=== PATIENT | female | born 1950 | race Caucasian/White ===

== ENCOUNTER → 2019-01-26 | Outpatient (CLI) | payer MEDICARE, OTHER ==
--- NOTE | 2019-01-26 09:02 | WOMENS IMAGING REPORT ---
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 Additio nal selected color Doppler and spectral images recorded. Note: Study does not meet criteria for complete doppler/duplex scan LIMITATIONS: None. FINDINGS: PANCREAS: The head and body of the pancreas are of normal echogenicity. The tail is obsc ured by overlying bowel gas. LIVER: Fatty liver. The liver measures 17.2 cm in length, at the uppe r limits of normal for size. LIVER VASCULATURE: Normal directional flow of the main portal vein and hepatic veins. GALLBLADDER: Interval cholecystectomy. ULTRASOUND-DETECTED NAVARRETE'S SIGN: Negative. INTRAHEPATIC DUCTS AND COMMON DUCT: CBD measures 3.8 mm in diameter, normal. The intrahepatic ducts normal caliber. No filling defects. INFERIOR VENA CAVA: Suboptimal visualization due to overlying bowel gas. Normal flow. AORTA: Suboptimal visualization due to overlying bowel gas. RIGHT KIDNEY: The right kidney measures 13.6 x 4.7 x 5.0 cm, normal size. Normal echogenicity. N o solid or suspicious masses. No hydronephrosis. No calcifications. LEFT KIDNEY: The left kidney measures 13.1 x 5.9 x 5.9 cm, normal size. Normal echogenicity. No solid or suspicious masses. No hydronephrosis. No calcifications. SPLEEN: The spleen measures 9.3 cm in length, normal size. No solid masses. PERITONEAL AND PLEURAL SPACES: No ascites or effusions. OTHER: No other significant finding. IMPRESSION: 1. Interval cholecystectomy since the prior examination dated 03/11/2015. 2. Fatty liver. 3. Suboptimal visualization of the tail of the pancreas, inferior vena cava, and abdominal aorta due to overlying bowel gas. TECHNICAL DOCUMENTATION: JOB ID: [id number] [employer]- All Rights Reserved Reading location - IP/workstation name: [email or web address]
== END ==
LOC: WI 07:09
PROVIDERS: ATTEND Internal Medicine Gastroenterology
DX: B18.2 Chronic viral hepatitis C (principal); K76.0 Fatty (change of) liver, not elsewhere classified; R94.5 Abnormal results of liver function studies
CPT/HCPCS: 36415; 76700; 80076; 81270; 82172; 82247; 82977; 83010; 83883; 84460; 86706; 87522

== ENCOUNTER → 2019-01-26 | Outpatient (CLI) | payer MEDICARE, OTHER ==
[2019-01-26 09:35] LABS: ALBUMIN 4.3 g/dL (3.5-5.0); ALKALINE PHOSPHATASE 82 U/L (38-126); ASPARTATE AMINO TRANSFERASE 20 U/L (14-36); BILIRUBIN,DIRECT 0.1 mg/dL (0.0-0.4); BILIRUBIN,TOTAL 0.5 mg/dL (0.2-1.3); TOTAL PROTEIN 7.4 g/dL (6.3-8.2)
[2019-01-27 13:13] LABS: HEPATITIS B SURFACE AB QUAL Non Reactive (.)
[2019-01-28 06:37] LABS: HCV FIBROSURE ALT P5P 22 IU/L (0-40); HEPATITIS C QUANTITATION HCV Not Detected IU/mL (.); NECROINFLAM ACTIVITY GRADE A0-No activity (.); NECROINFLAMM ACTIVITY SCORE 0.06 (0.00-0.17)
[2019-01-28 07:06] LABS: HCV FIBROSURE HAPTOGLOBIN 222 mg/dL (34-200)
== END ==
LOC: OD 07:56
PROVIDERS: ATTEND Physician Assistant
DX: B18.2 Chronic viral hepatitis C (principal)
CPT/HCPCS: 36415; 80076; 81270; 82172; 82247; 82977; 83010; 83883; 84460; 86706; 87522

== ENCOUNTER → 2019-04-02 | Outpatient (CLI) | payer MEDICARE, OTHER ==
--- NOTE | 2019-04-02 14:13 | RADIOLOGY REPORT (SQ) ---
EXAM DESCRIPTION: CT ABD/PELVIS WITH IV ORAL COMPLETED DATE/TIME: 04/02/2019 9:05 am REASON FOR STUDY: LUQ PAIN (R10.12) R10.12 LEFT UPPER QUADRANT PAIN COMPARISON: None. TECHNIQUE: CT scan of the abdomen and pelvis performed using helical scanning technique with dynamic intravenous contrast injection. No oral contrast. Images reviewed with lung, soft tissue, and bone windows. Reconstructed coronal and sagittal MPR images reviewed. Delayed images for evaluation of the urinary system also acquired. All images stored on PACS. All CT scanners at this facility use dose modulation, iterative reconstruction, and/or weight based d osing when appropriate to reduce radiation dose to as low as reasonably achievable (ALARA). [facility]: Dose Right [facility]: CareDose [facility]: Dose Right [facility]: Teradose 4D [facility]: whoactually CONTRAST TYPE AND DOSE: Contrast/concentration: Isovue 350.00 mg/ml; Total Contrast Delivered: 100.0 ml; Total Saline Delivered: 72.0 ml RENAL FUNCTION: Creatinine 0.5 milligrams/deciliter RADIATION DOSE: CT Rad equipment meets quality standard of care and radiation dose reduction techniq ues were employed. CTDIvol: 10.2 - 10.3 mGy. DLP: 1087 mGy-cm.. LIMITATIONS: None. FINDINGS: LOWER CHEST: No acute findings. LIVER: The morphology of the liver is non cirrhotic. The portal veins are patent. There is no hepat ic mass SPLEEN: No splenomegaly or splenic mass. PANCREAS: No acute abnormality. GALLBLADDER: The gallbladder is surgically absent. The intra and extrahepatic bile ducts are normal in caliber. ADRENAL GLANDS: No mass or asymmetry. RIGHT KIDNEY AND URETER: No solid masses. No calcifications. No hydronephrosis or hydroureter. LEFT KIDNEY AND URETER: No solid masses. No calcifications. No hydronephrosis or hydroureter. AORTA AND VESSELS: No aneurysm or dissection of the abdominal aorta. RETROPERITONEUM: No retroperitoneal adenopathy, hemorrhage or mass. BOWEL AND PERITONEAL CAVITY: Colonic diverticulosis without other associated ancillary findings to in dicate an acute diverticulitis. There is a 2.1 x 1.9 cm structure that projects from the posterior w all of the gastric fundus and contains gas and oral contrast (image 16 of series 2) ; the structure c ould represent a diverticulum or an ulcer. There is no bowel obstruction, bowel wall thickening or p ericolonic/ perienteric inflammation. There is no mesenteric adenopathy, free intraperitoneal fluid, or mesenteric/ omental inflammation. APPENDIX: Normal. PELVIS: The uterus is surgically absent. The urinary bladder is distended and normal in appearance. ABDOMINAL WALL: Surgical clips in the ventral abdomen - correlate for prior ventral hernia repair. BONES: No acute findings. OTHER: No other finding. IMPRESSION: 1. 2.1 x 1.9 cm structure that projects from the posterior wall of the gastric fundus an d contains gas and oral contrast (image 16 of series 2); the structure could represent a diverticulum or an ulcer. 2. Colonic diverticulosis without diverticulitis. 3. Status post cholecystectomy and hysterectomy. TECHNICAL DOCUMENTATION: JOB ID: [id number] Quality ID # [id number]: Final reports with documentation of one or more dose reduction techniques (e.g., Au tomated exposure control, adjustment of the mA and/or kV according to patient size, use of iterative reconstruction technique) 2010 [employer]- All Rights Reserved Reading location - IP/workstation name: [email or web address]
== END ==
LOC: RAD 08:16
PROVIDERS: ATTEND Internal Medicine Gastroenterology
DX: R10.12 Left upper quadrant pain (principal)
CPT/HCPCS: 74177; 82565